=== PATIENT | female | born 1975 | race African-American/Black ===

== ENCOUNTER 2018-02-10 13:23 | Emergency (ER) | payer OTHER ==
[2018-02-10 17:16] LABS: CO2 Carbon Dioxide 25 mmol/L (22-32); Calcium 9.4 mg/dL (8.6-10.3); Chloride 97 mmol/L (101-111); Sodium 131 mmol/L (135-145)
[2018-02-10 17:19] LABS: Anion Gap 9 mmol/L (2-11)
[2018-02-10 17:22] LABS: BUN/Creatinine Ratio 22.2 (8-20); Blood Urea Nitrogen 18 mg/dL (6-24); EGFR Non-African American 78.3 (>60); Glucose 72 mg/dL (70-100)
[2018-02-10] MEDS ORDERED: Iohexol 350* (CONTRAST) 500 ML MDV IV ONE (17:30)
[2018-02-10 17:41] LABS: Hematocrit 37 % (35-47); Hemoglobin 11.7 g/dl (12.0-16.0); Mean Corpuscular Volume 72 fL (80-97); Red Blood Count 5.09 10^6/ul (4.00-5.40); White Blood Count 4.5 10^3/ul (3.5-10.8)
[2018-02-10 17:42] LABS: Mean Corpuscular HGB Conc 32 g/dl (31-36); Mean Corpuscular Hemoglobin 23 pg (27-31); Mean Platelet Volume 8.7 fL (7.4-10.4); Platelet Count 364 10^3/ul (150-450); Red Cell Distribution Width 14 % (10.5-15)
[2018-02-10 18:12] LABS: ABS Basophils 0 10^3/ul (0-0.2); ABS Eosinophils 0.2 10^3/ul (0-0.6); ABS Lymphocytes 1.3 10^3/ul (1.0-4.8); ABS Monocytes 0.4 10^3/ul (0-0.8); ABS Neutrophils 2.6 10^3/ul (1.5-7.7); ABS Nucleated RBC 0 10^3/ul; Lymphocyte % 28.6 %; Nucleated Red Blood Cells % 0.1
[2018-02-10 18:13] LABS: Microcytosis 1+
[2018-02-10] MEDS ORDERED: Potassium Chlor TAB* 20 MEQ TAB.ER PO ONE (18:56)
--- NOTE | 2018-02-10 18:57 | ED ---
Throat Pain/Nasal Congestion - HPI Summary HPI Summary: Patient with history of aneurysm in 2010 complains of new onset intermittent double vision, left side headache and left sinus pain starting February 01. Patient states that were vision only with distance vision, starts in the afternoon and stays until she falls asleep. Weeks up without double vision. History of aneurysm rupture, in 2010 was last time she had double vision. Patient wears glasses. Current prescription provided in February 2017. Patient due for new evaluation generated 2018. Patient denies trauma, fever, cough, sore throat, ear pain, neck stiffness, CP, SOB, nasal discharge, N/V/D, abdominal pain, change in urine, change in BM. Medical history is HTN, aneurysm 2010. - History of Current Complaint Chief Complaint: EDGeneral Time Seen by Provider: 02/10/18 14:41 Hx Obtained From: Patient Onset/Duration: Gradual Onset Severity: Mild Associated Signs And Symptoms: Positive: Sinus Discomfort Cough: None - Allergies/Home Medications Allergies/Adverse Reactions: Allergies Allergy/AdvReac Type Severity Reaction Status Date / Time meropenem Allergy Fever Verified 02/10/18 14:10 PMH/Surg Hx/FS Hx/Imm Hx Endocrine/Hematology History: Denies: Hx Diabetes Cardiovascular History: Reports: Hx Hypertension History: Denies: Hx Dialysis, Hx Renal Disease Sensory History: Reports: Hx Contacts or Glasses - 2 year old prescription Opthamlomology History: Reports: Hx Contacts or Glasses - 2 year old prescription EENT History: Denies: Hx Deafness Neurological History: Denies: Hx Developmental Delay - Cancer History Hx Chemotherapy: No Hx Radiation Therapy: No Infectious Disease History: No Infectious Disease History: Denies: Traveled Outside the [place] in Last 30 Days - Social History Alcohol Use: None Substance Use Type: Reports: None Smoking Status (MU): Unknown if Ever Smoked Review of Systems Constitutional: Negative Positive: Blurred Vision ENT: Negative Cardiovascular: Negative Respiratory: Negative Gastrointestinal: Negative Genitourinary: Negative Musculoskeletal: Negative Skin: Negative Positive: Headache Psychological: Normal All Other Systems Reviewed And Are Negative: Yes Physical Exam - Summary Physical Exam Summary: Neuro exam normal. No tenderness to palpation of head, face, nose. Triage Information Reviewed: Yes Vital Signs On Initial Exam: Initial Vitals Temp Pulse Resp BP Pulse Ox 98.6 F 76 14 139/82 100 02/10/18 14:02 02/10/18 14:02 02/10/18 14:02 02/10/18 14:02 02/10/18 14:02 Vital Signs Reviewed: Yes Appearance: Positive: Well-Appearing Skin: Positive: Warm Head/Face: Positive: Normal Head/Face Inspection Eyes: Positive: Normal ENT: Positive: Normal ENT inspection Neck: Positive: Supple Respiratory/Lung Sounds: Positive: Clear to Auscultation Cardiovascular: Positive: Normal Abdomen Description: Positive: Nontender Musculoskeletal: Positive: Normal Neurological: Positive: Normal Psychiatric: Positive: Normal AVPU Assessment: Alert - Nancy Coma Scale Best Eye Response: 4 - Spontaneous Best Motor Response: 6 - Obeys Commands Best Verbal Response: 5 - Oriented Coma Scale Total: 15 Diagnostics - Vital Signs Vital Signs Temp Pulse Resp BP Pulse Ox 02/10/18 18:44 99 F 80 16 124/81 100 02/10/18 14:02 98.6 F 76 14 139/82 100 - Laboratory Lab Results: Lab Results 02/10/18 02/10/18 02/10/18 Range/Units 16:28 17:20 17:20 WBC 4.5 (3.5-10.8) 10^3/ul RBC 5.09 (4.00-5.40) 10^6/ul Hgb 11.7 L (12.0-16.0) g/dl Hct 37 (35-47) % MCV 72 L (80-97) fL MCH 23 L (27-31) pg MCHC 32 (31-36) g/dl RDW 14 (10.5-15) % Plt Count 364 (150-450) 10^3/ul MPV 8.7 (7.4-10.4) fL Neut % (Auto) 58.0 % Lymph % (Auto) 28.6 % [place] % (Auto) 8.5 % Eos % (Auto) 4.0 % Baso % (Auto) 0.9 % Absolute Neuts (auto) 2.6 (1.5-7.7) 10^3/ul Absolute Lymphs (auto) 1.3 (1.0-4.8) 10^3/ul Absolute Monos (auto) 0.4 (0-0.8) 10^3/ul Absolute Eos (auto) 0.2 (0-0.6) 10^3/ul Absolute Basos (auto) 0 (0-0.2) 10^3/ul Absolute Nucleated RBC 0 10^3/ul Nucleated RBC % 0.1 Microcytosis 1+ Sodium 131 L (135-145) mmol/L Potassium TNP 3.3 L Chloride 97 L (101-111) mmol/L Carbon Dioxide 25 (22-32) mmol/L Anion Gap 9 (2-11) mmol/L BUN 18 (6-24) mg/dL Creatinine 0.81 (0.51-0.95) mg/dL Est GFR ( Amer) 94.8 (>60) Est GFR (Non-Af Amer) 78.3 (>60) BUN/Creatinine Ratio 22.2 H (8-20) Glucose 72 (70-100) mg/dL Calcium 9.4 (8.6-10.3) mg/dL AST 23 (13-39) U/L Result Diagrams: 02/10/18 17:20 02/10/18 17:20 Lab Statement: Any lab studies that have been ordered have been reviewed, and results considered in the medical decision making process. EENT Course/Dx - Course Course Of Treatment: Patient with history of aneurysm in 2010 complains of new onset intermittent double vision, left side headache and left sinus pain starting February 01. Patient states that were vision only with distance vision , starts in the afternoon and stays until she falls asleep. Weeks up without double vision. History of aneurysm rupture, in 2010 was last time she had double vision. Patient wears glasses. Current prescription provided in February 2017. Patient due for new evaluation generated 2018. Patient denies trauma, fever, cough, sore throat, ear pain, neck stiffness, CP, SOB, nasal discharge, N/V/D, abdominal pain, change in urine, change in BM. Medical history is HTN, aneurysm 2010. Physical exam:Neuro exam normal. No tenderness to palpation of head, face, nose. Vital signs within normal limits and stable. Labs unremarkable. CTA head and neck and CT brain negative. Patient advised to follow-up with ophthalmology. - Diagnoses Provider Diagnoses: Double vision, Headache Discharge - Sign-Out/Discharge Documenting (check all that apply): Patient Departure - Discharge Plan Condition: Stable Disposition: HOME Referrals: MYAH RAWLS MD [Primary Care Provider] - Additional Instructions: Follow-up with your eye doctor for further evaluation of double vision. Take ibuprofen or Tylenol for headache. Follow-up with primary care. Return to the ED for any new or worsening symptoms - Billing Disposition and Condition Condition: STABLE Disposition: Home
[2018-02-10 19:19] VITALS: BP 124/80
== END 2018-02-10 19:18 | disposition home or self-care (01) ==
LOC: ED 13:23
DX: H53.2 Diplopia (principal); R51 Headache; I10 Essential (primary) hypertension; H53.8 Other visual disturbances
CPT/HCPCS: 36415; 70450; 70496; 70498; 80048; 85025; 99283; A9270-GY; Q9967

== ENCOUNTER 2018-02-21 13:35 | Emergency (ER) | payer OTHER ==
[2018-02-21 14:12] VITALS: BP 120/83
[2018-02-21] MEDS ORDERED: Fluorescein Sodium TOPICAL* 1 MG TEST STRIP OPHTHALMIC ONE (14:57)
[2018-02-21] MEDS ORDERED: BSS OPTH.SOL* BTL OPHTHALMIC ONE (14:58)
--- NOTE | 2018-02-21 15:04 | UC ---
Eye Complaint HPI - HPI Summary HPI Summary: PATIENT HAD 2 WEEKS OF INTERMITTENT BLURRY VISION AND DOUBLE VISION. SEEMS TO BE WORSE LATER IN THE DAY AND OKAY IN THE MORNINGS. WENT TO [facility] AND WAS EVALUATED FOR DOUBLE VISION WITH SCANS OF THE HEAD AND BLOOD WORK. WORKUP WAS NEGATIVE AND PATIENT WAS ADVISED TO FOLLOW-UP WITH AN EYE DOCTOR. REPORTS SHE SAW AN BACK WINDER YESTERDAY WHO INDICATED THAT SHE MAY HAVE CORNEAL ABRASIONS AND SHOULD SEE AN MARINE ENGINE MACHINIST FOR FURTHER EVALUATION. SHE DENIES ANY NAUSEA OR HEADACHE. HAS MILD DRAINAGE FROM THE LEFT EYE. WORE HER CONTACTS FOR A FEW DAYS THIS WEEK AND SYMPTOMS GOT WORSE. - History of Current Complaint Chief Complaint: UCEye Stated Complaint: EYE COMPLAINT Time Seen by Provider: 02/21/18 14:40 Hx Obtained From: Patient Hx Last Menstrual Period: feb [id number] Onset/Duration: Gradual Onset, Lasting Weeks, Still Present Severity Initially: Moderate Severity Currently: Moderate Pain Intensity: 7 Pain Scale Used: 0-10 Numeric Aggravating Factor(s): Nothing Alleviating Factor(s): Nothing Associated Signs And Symptoms: Positive: Drainage (Clear), Vision Impairment Bilateral. Negative: Photophobia, Fever, Swelling - Allergies/Home Medications Allergies/Adverse Reactions: Allergies Allergy/AdvReac Type Severity Reaction Status Date / Time meropenem Allergy Intermediate Fever Verified 02/21/18 14:12 Home Medications: Home Medications Chlorthalidone 25 mg PO DAILY WITH MEAL 02/21/18 [History Confirmed 02/21/18] Cholecalciferol TAB* [Vitamin D TAB*] 1,000 unit PO DAILY 02/21/18 [History Confirmed 02/21/18] PMH/Surg Hx/FS Hx/Imm Hx Cardiovascular History: Hypertension - Surgical History Surgical History: None Surgery Procedure, Year, and Place: 2009- an rupture - coiled - Family History Known Family History: Positive: Non-Contributory - Social History Alcohol Use: Rare Substance Use Type: None Smoking Status (MU): Never Smoked Tobacco Review of Systems All Other Systems Reviewed And Are Negative: Yes Constitutional: Positive: Negative Eyes: Positive: Blurred Vision, Diplopia, Drainage Respiratory: Positive: Negative Cardiovascular: Positive: Negative Gastrointestinal: Positive: Negative Neurological: Positive: Negative Physical Exam Triage Information Reviewed: Yes Appearance: Well-Appearing, No Pain Distress, Well-Nourished Vital Signs: Initial Vital Signs Temp 99.3 F 02/21/18 14:04 Pulse 72 02/21/18 14:04 Resp 18 02/21/18 14:04 BP 120/83 02/21/18 14:04 Pulse Ox 100 02/21/18 14:04 Vital Signs Reviewed: Yes Eyes: Positive: Conjunctiva Clear, Other: - PERRL, EOMI. FLUORESCEIN UPTAKE BILATERAL LOWER BULBAR CONJUNCTIVAE. PINPOINT AREA OF UPTAKE RIGHT OUTER, LOWER CORNEA. Negative: Discharge ENT: Positive: Hearing grossly normal Neck: Positive: Supple Respiratory: Positive: No respiratory distress, No accessory muscle use Cardiovascular: Positive: Pulses Normal Abdomen Description: Positive: Soft Musculoskeletal: Positive: No Edema Neurological: Positive: Alert Psychological: Positive: Age Appropriate Behavior Skin: Negative: Rashes Eye Complaint Course/Dx - Differential Dx/Diagnosis Provider Diagnosis: Abrasion of right cornea, Conjunctival abrasion Discharge - Sign-Out/Discharge Documenting (check all that apply): Patient Departure All imaging exams completed and their final reports reviewed: No Studies - Discharge Plan Condition: Stable Disposition: HOME Prescriptions: Ciprofloxacin 0.3% OPTH.AMISHA* [Cipro 0.3% Opth*] 1 drop BOTH EYES Q4H #1 btl Patient Education Materials: Corneal Abrasion (ED), Keratitis (ED) Referrals: MYAH RAWLS MD [Primary Care Provider] - If Needed Tip Bazan MD [Medical Doctor] - 1 Day Additional Instructions: CONJUNCTIVAL ABRASION Conjunctival abrasions occur from blunt injuries and mild chemical or thermal abraham and present as an irregularity of the epithelial surface of the conjunctiva, best seen using fluorescein stain and a cobalt blue light. Regions of denuded epithelium will appear green. Corneal abrasions are also frequently present. Isolated conjunctival abrasions are treated with antibiotic ointment applied four times daily for one week. Referral to an leg assembler for a complete eye examination within one to three days of injury is a reasonable precaution in these patients if all symptoms have not resolved and in contact wearers. These injuries typically heal within two to three days. Patients with an isolated conjunctival injury typically recover fully without any vision loss Don't drive or operate machinery until you have the use of both your eyes. The abrasion usually is healed in one or two days. A follow-up examination to confirm healing is recommended. Call the doctor or return at once if you develop severe pain, decreasing vision, eye swelling, or purulent drainage. Contact lens wear may increase the risk of infectious keratitis by several mechanisms: Altering and causing a breakdown of the natural protective barriers of the ocular surface and tear film (eg, hypoxia, epithelial abrasions, and tear stagnation) Providing a nidus for entrapment of microorganisms within the micropores of the oxygen-permeable polymers and the formation of microbial biofilms on the lens surfaces Contact lenses, storage cases, and disinfecting solutions may become contaminated through careless handling and poor hygienic habits of the user. Symptoms and signs of infectious keratitis usually begin within 24 hours of infection. The most common presenting features include: - Red eye (conjunctival vascular injection) - Reduced visual acuity (especially if the central cornea is involved) - Pain - Eyelid swelling - Photophobia - Corneal epithelial defect Treatment consists of antibiotic eye drops and follow-up with ophthalmology. FOLLOW-UP WITH AN EYE DOCTOR TOMORROW. NO CONTACT LENS USE AT ALL UNTIL SYMPTOMS ARE 100% RESOLVED. ONCE YOU RESUME CONTACT LENS USE ALWAYS REMOVE CONTACT LENSES AT NIGHT WHILE SLEEPING , EVEN IF THEY ARE CONTINUOUS USE LENSES. THIS WILL HELP PREVENT DEVELOPING EYE INFECTIONS AND IRRITATION IN THE FUTURE. - Billing Disposition and Condition Condition: STABLE Disposition: Home
== END 2018-02-21 15:25 | disposition home or self-care (01) ==
LOC: UCEAST 13:35
DX: S05.01XA Injury of conjunctiva and corneal abrasion without foreign body, right eye, initial encounter (principal); I10 Essential (primary) hypertension; Z88.8 Allergy status to other drugs, medicaments and biological substances; X58.XXXA Exposure to other specified factors, initial encounter; Y92.9 Unspecified place or not applicable
CPT/HCPCS: 99212; A9270-GY; G0463

== ENCOUNTER 2018-03-03 12:43 | Emergency (ER) | payer OTHER ==
--- NOTE | 2018-03-03 13:02 | ED ---
Throat Pain/Nasal Congestion - HPI Summary HPI Summary: A 42 y/o female presents to the ED c/o double vision in both eyes. As per triage , "Pt referred to ED by Dr Pitts d/t L eye not moving to left , double vision. Pt states she feels tightness "wrapping" around L eye and behind L eye. Pt seen here 02/10/18 with same symptoms". Patient was referred by Dr. Pitts because of an eye gaze. Patient was referred by his office for a workup in [facility] due to a history of cerebral aneurysm. According to the patient, her double vision started on February 02, 2018. She stated that is came on gradually, but became worse. She stated that she remembers driving back from [place], [place] (as she was seeing a friend). She was driving around 1600 - 1800 when she noticed that her double vision started. As she kept driving, it progressively became worse so a friend took over and drove the rest of the way home. She stated that the following day she was fine, but again, around 1600 she exhibited the double vision. The following day it started at 1300 - 1400, and so on. It is at a point where it is present all the time, and she is not sure if it is worse or better as they changed her glasses so she can see the road. Patient noted that she cannot see the signs and lines on the sides of the road. She decided that the symptoms could be related to her aneurysm, so she went to a neurologist, who referred her to (Dr. Gandhi), who then referred her to an bindery operator ( Dr. Bazan) who then referred her back to a neurologist. She noted that she was at [facility] on February 10, 2018 where a CAT scan was done, but everything came back normal. She stated that her aneurysm ruptured on December 16, 2010 and then had a 5-year follow up in 2016 in which she was cleared. She stated that when her aneurysm ruptures, she had a massive headache, double vision, and nausea. She denies any difficulty hearing, but has no sense of small. She additionally had a headache that she characterized as tightness/pressure on the left side of her head that radiated down her nose and also was in the back of her left eye. 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 Home Medications Medication Instructions Recorded Confirmed Type Cholecalciferol TAB* [Vitamin D 1,000 unit PO DAILY 02/21/18 03/03/18 History TAB*] Chlorthalidone TAB* [Hygroton TAB*] 25 mg PO DAILY WITH MEAL 03/03/18 03/03/18 History - History of Current Complaint Chief Complaint: EDNeurologicalDeficit Time Seen by Provider: 03/03/18 12:45 Hx Obtained From: Patient Onset/Duration: Sudden Onset, Lasting Weeks, Still Present Associated Signs And Symptoms: Positive: Negative Cough: None - Allergies/Home Medications Allergies/Adverse Reactions: Allergies Allergy/AdvReac Type Severity Reaction Status Date / Time meropenem Allergy Intermediate Fever Verified 03/03/18 12:51 Home Medications: Home Medications Chlorthalidone TAB* [Hygroton TAB*] 25 mg PO DAILY WITH MEAL 03/03/18 [History Confirmed 03/03/18] PMH/Surg Hx/FS Hx/Imm Hx Endocrine/Hematology History: Denies: Hx Diabetes, Hx Thyroid Disease Cardiovascular History: Reports: Hx Hypertension Respiratory History: Denies: Hx Asthma, Hx Chronic Obstructive Pulmonary Disease (COPD) GI History: Denies: Hx Ulcer History: Denies: Hx Dialysis, Hx Renal Disease Sensory History: Reports: Hx Contacts or Glasses - 2 year old prescription Denies: Hx Deafness Opthamlomology History: Reports: Hx Contacts or Glasses - 4 year old prescription Neurological History: Denies: Hx Developmental Delay - Cancer History Hx Chemotherapy: No Hx Radiation Therapy: No - Surgical History Surgery Procedure, Year, and Place: 2009- an rupture - coiled Infectious Disease History: No Infectious Disease History: Denies: Hx Hepatitis, Hx Human Immunodeficiency Virus (HIV), Traveled Outside the [place] in Last 30 Days - Family History Known Family History: Negative: Diabetes - Social History Alcohol Use: Rare Substance Use Type: Reports: None Smoking Status (MU): Never Smoked Tobacco Review of Systems Negative: Fever Positive: Other - DOUBLE VISION, MORE SO ON LEFT Positive: Headache All Other Systems Reviewed And Are Negative: Yes Physical Exam - Summary Physical Exam Summary: Appearance: Well-appearing, Well-nourished, lying in bed comfortably Skin: Warm, dry, no obvious rash Eyes: sclera anicteric, no conjunctival pallor ENT: mucous membranes moist, pharynx appears normal Neck: Supple, nontender Respiratory: Clear to auscultation, no signs of respiratory distress Cardiovascular: Normal S1, S2. No murmurs. Normal distal pulses in tibial and radial bilaterally. Abdomen: Soft, nontender, normal active bowel sounds present Musculoskeletal: Normal, Strength/ROM Intact Neurological: A&Ox3, awake and alert, mentation is normal, speech is fluent and appropriate. Experiencing diplopia with left eye gaze. Left eye can't cross midline but clearly has paresis. Otherwise, gaze is conjugate and pupils are reactive. Psychiatric: affect is normal, does not appear anxious or depressed Triage Information Reviewed: Yes Vital Signs On Initial Exam: Initial Vitals Temp Pulse Resp BP Pulse Ox 97.3 F 76 14 125/85 99 03/03/18 12:46 03/03/18 12:46 03/03/18 12:46 03/03/18 12:46 03/03/18 12:46 Vital Signs Reviewed: Yes Diagnostics - Vital Signs Vital Signs Temp Pulse Resp BP Pulse Ox 03/03/18 12:46 97.3 F 76 14 125/85 99 - Laboratory Result Diagrams: 03/03/18 13:15 03/03/18 13:15 Lab Statement: Any lab studies that have been ordered have been reviewed, and results considered in the medical decision making process. EENT Course/Dx - Course Course Of Treatment: A 42 y/o female presents to the ED c/o double vision in both eyes. According to the patient, her double vision started on February 02, 2018. She stated that is came on gradually, but became worse. She stated that she remembers driving back from [place], [place] (as she was seeing a friend). She was driving around 1600 - 1800 when she noticed that her double vision started. As she kept driving, it progressively became worse so a friend took over and drove the rest of the way home. She stated that the following day she was fine, but again, around 1600 she exhibited the double vision. The following day it started at 1300 - 1400, and so on. It is at a point where it is present all the time. Patient has a history of a brain aneurysm. Physical examination findings were unremarkable. No laboratory scans were done. Hematology, Chemistry, and immunology screens were done. No significant laboratory abnormalities were found except low sodium, potassium, and chloride. In the ED course, the patient received no medications. Patient will be signed out to Dr. Vikash Machuca via Dr. David Valentino, pending MRA and MRI, upon shift change on 03/03/2018 at 2200. Discharge - Sign-Out/Discharge Documenting (check all that apply): Sign-Out Patient - JULIOFAR Signing out patient TO: Vikash Machuca Receiving patient FROM: David Valentino - Discharge Plan Condition: Good Disposition: HOME Patient Education Materials: Diplopia (ED) Referrals: Mychal Pitts MD [Medical Doctor] - Additional Instructions: Please accept my apologies for the delay in getting your MRI scans. This was a consequence of having difficulty getting information on your coils from [facility]. Fortunately they did not show anything worrisome vis a vis your double vision. Problems with the sixth cranial nerve can arise with a number of other conditions besides aneurysms, none of which are a cause of immediate danger to you. Dr. Pitts will want to see you in followup to complete your workup. It may be helpful in case you need another MRI scan at some point in the future to obtain the information about your coils for you to keep yourself. Usually this is provided in the form of a card which has all the relevant information. I would think that your neurosurgeon's or interventional radiologist's office would be able to supply that to you. - Attestation Statements Document Initiated by Scribe: Yes Documenting Scribe: Kar Fuchs Provider For Whom Toney is Documenting (Include Credential): David Valentino MD Scribe Attestation: I, Kar Fuchs, scribed for David Valentino MD on 03/03/18 at 2204. Status of Scribe Document: Ready
--- OUTSIDE RECORDS SUMMARY | 2018-03-03 13:03 | XMS REPORT | Continuity of Care Document ---
:1975 External Reference #:[id number] Author Name Neto Yungon, OD Address [address] [place] [address] Care Team Providers Name Role Phone Vincent Ramirez M.D. Primary Care Physician Unavailable Payers Type Date Identification Numbers Payment Provider Subscriber Policy Number: [id number] [employer] Number: [id number] [address] PayID: [id number] [place] [address] Advance Directives Description No Information Available Problems Date Description Provider Status Onset: Problem Active Family History Date Family Member(s) Problem(s) Comments General Glasses General Heart Disease General Diabetes Father Glasses Mother Glasses Mother Diabetes Mother Heart Disease Mother High BP Social History Type Date Description Comments Sex Unknown ETOH Use Rarely consumes alcohol Tobacco Use Start: Unknown Patient has never smoked Smoking Status Reviewed: 03/01/18 Patient has never smoked Allergies, Adverse Reactions, Alerts Date Description Reaction Status Severity Comments 02/23/2018 Meropenem / Vaborbactam Active Medications Medication Date Status Form Strength Qnty SIG Indications Ordering Provider Vitamin D 02/21 Active Tablets 1000Unit Unknown (Cholecalcifero /2018 l) Chlorthalidone 02/21 Active Tablets 25mg Ciprofloxacin 02/21 Active Solution 0.3% 1unit Ciprofloxacin Unknown HCL /2018 s 0.3% Opth.Fara* Immunizations Description No Information Available Vital Signs Date Vital Result Comment 03/01/2018 3:13pm Intraocular Pressure Right Eye 15 mmHg Intraocular Pressure Left Eye 15 mmHg 02/23/2018 11:06am Intraocular Pressure Right Eye 16 mmHg Intraocular Pressure Left Eye 16 mmHg Results Test Date Facility Test Result H/L Range Note TSH And T4 02/23/2018 [facility] TSH Thyroid <pending> Stimulating Horm T4 Total Thyroxine <pending> Laboratory test 02/23/2018 [facility] T3 Free <pending> finding Laboratory Studies 02/10/2018 N2N/CCD Import Absolute 0 10^3/ul 0-0.2 Basophils (auto) Absolute Eosinophils (auto) 0.2 10^3/ul 0-0.6 Absolute Lymphocytes (auto) 1.3 10^3/ul 1.0-4.8 Absolute Monocytes (auto) 0.4 10^3/ul 0-0.8 Absolute Neutrophils (auto) 2.6 10^3/ul 1.5-7.7 Aspartate Amino Transf (Ast/Sgot) 23 U/L 13-39 Basophils (%) (Auto) 0.9 % Eosinophils (%) (Auto) 4.0 % Hematocrit 37 % 35-47 Hemoglobin 11.7 g/dL Low 12.0-16.0 Lymphocytes (%) (Auto) 28.6 % Mean Corpuscular Hemoglobin 23 pg Low 27-31 Mean Corpuscular Hemoglobin Concent 32 g/dL 31-36 Mean Corpuscular Volume 72 fL Low 80-97 Mean Platelet Volume 8.7 fL 7.4-10.4 Monocytes (%) (Auto) 8.5 % Neutrophils (%) (Auto) 58.0 % Nucleated RBC Absolute Count (auto) 0 10^3/ul Nucleated Red Blood Cells % 0.1 Platelet Count 364 10^3/ul 150-450 Potassium Level 3.3 mmol/L Low 3.5-5.0 Red Blood Count 5.09 10^6/ul 4.00-5.40 Red Cell Distribution Width 14 % 10.5-15 White Blood Count 4.5 10^3/ul 3.5-10.8 Laboratory Studies 02/10/2018 N2N/CCD Import Anion Gap 9 mmol/L 2-11 BUN/Creatinine Ratio 22.2 High 8-20 Blood Urea Nitrogen 18 mg/dL 6-24 Calcium Level 9.4 mg/dL 8.6-10.3 Carbon Dioxide Level 25 mmol/L 22-32 Chloride Level 97 mmol/L Low 101-111 Creatinine 0.81 mg/dL 0.51-0.95 Estimated GFR () 94.8 Estimated GFR (Non- 78.3 Glucose Level 72 mg/dL 70-100 Sodium Level 131 mmol/L Low 135-145 Procedures Date Code Description Status 03/01/2018 46477 Visual Field Exam Extended, Unilateral Or Bilateral Completed 02/23/2018 03794 Oct, Optic Nerve Completed 02/23/2018 21127 Eye Exam New Comprehensive Completed Encounters Type Date Location Provider Dx Diagnosis Office Visit 03/01/2018 Main Office Neto Anthony, OD H40.013 Open angle with 9:15a borderline findings, low risk, bilateral 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
--- OUTSIDE RECORDS SUMMARY | 2018-03-03 13:03 | XMS REPORT | Continuity of Care Document ---
:1975 External Reference #:[id number] Author Name Neto Anthony, OD Address [address] [place] [address] Care Team Providers Name Role Phone Vincent Ramirez M.D. Care Team Information Soap Grinder Unavailable Vincent Ramirez M.D. Primary Care Physician Unavailable Payers Type Date Identification Numbers Payment Provider Subscriber Policy Number: [id number] [employer] Number: [id number] [address] PayID: [id number] [place] [address] Advance Directives Description No Information Available Problems [...] Patient has never smoked Smoking Status Reviewed: 02/23/18 Patient has never smoked Allergies, Adverse Reactions, [...] Immunizations Description No Information Available Vital Signs Description No Information Available Results Test Date Facility Test Result H/L [...] Low 135-145 Procedures Date Code Description Status 02/23/2018 59223 Oct, Optic Nerve Completed 02/23/2018 39781 Eye Exam New Comprehensive Completed Encounters Description No Information Available Plan of Treatment 02/23/2018 - Neto Anthony, ODH04.123 Dry eye syndrome of bilateral lacrimal glandsFollow up:2-3 days visual efvdnG06.2 DiplopiaFollow up:2-3 days visual elvrwH35.8 Other visual disturbancesFollow up:2-3 days visual onvwqF86.9 Toxoplasmosis, unspecifiedFollow up:2-3 days visual field
--- OUTSIDE RECORDS SUMMARY | 2018-03-03 13:03 | XMS REPORT | Continuity of Care Document ---
:1975 External Reference #:[id number] Author Name Neto Anthony, OD Address [address] [place] [address] Care Team Providers Name Role Phone Vincent Ramirez M.D. Care Team Information Core Maker Unavailable Vincent Ramirez M.D. Primary Care Physician Unavailable Payers Type Date Identification Numbers Payment Provider Subscriber Policy Number: [id number] [employer] Group Number: [id number] [address] PayID: [id number] [place] [address] Advance Directives Description No Information Available Problems [...] Available Vital Signs Date Vital Result Comment 02/23/2018 11:06am Intraocular Pressure Right Eye 16 [...] 135-145 Procedures Date Code Description Status 02/23/2018 56097 Oct, Optic Nerve Completed 02/23/2018 93214 Eye Exam New Comprehensive Completed Encounters Description No Information Available Plan of Treatment No Information Available
[2018-03-03 13:36] LABS: ABS Basophils 0.1 10^3/ul (0-0.2); ABS Eosinophils 0.1 10^3/ul (0-0.6); ABS Lymphocytes 1.4 10^3/ul (1.0-4.8); ABS Monocytes 0.3 10^3/ul (0-0.8); ABS Neutrophils 1.7 10^3/ul (1.5-7.7); ABS Nucleated RBC 0 10^3/ul; Eosinophil % 3.4 %; Hematocrit 39 % (35-47); Hemoglobin 12.7 g/dl (12.0-16.0); Lymphocyte % 38.1 %; Mean Corpuscular HGB Conc 32 g/dl (31-36); Mean Corpuscular Hemoglobin 23 pg (27-31); Mean Corpuscular Volume 72 fL (80-97); Mean Platelet Volume 8.8 fL (7.4-10.4); Nucleated Red Blood Cells % 0.2; Platelet Count 343 10^3/ul (150-450); Red Blood Count 5.45 10^6/ul (4.00-5.40); Red Cell Distribution Width 14 % (10.5-15); White Blood Count 3.7 10^3/ul (3.5-10.8)
[2018-03-03 13:56] LABS: Albumin 4.3 g/dL (3.2-5.2); Albumin/Globulin Ratio 0.8 (1-3); BUN/Creatinine Ratio 21.6 (8-20); C Reactive Protein 6.99 mg/L (<8.01); Calcium 10.2 mg/dL (8.6-10.3); EGFR Non-African American 86.9 (>60); Globulin 5.4 g/dL (2-4); Potassium 3.4 mmol/L (3.5-5.0); Total Bilirubin 0.3 mg/dL (0.2-1.0); Total Protein 9.7 g/dL (6.4-8.9)
[2018-03-03 14:29] LABS: Thyroid Peroxidase Antibodies 1.36 IU/mL (<9)
[2018-03-03] MEDS ORDERED: Gadoteridol* (CONTRAST) 279.3 MG/ML 10 ML IV ONE (21:55)
--- NOTE | 2018-03-03 23:34 | ED ---
Progress - Progress Note Progress Note: This patient was signed out from Dr. Valentino to Dr. aMchuca upon shift change at 22 :00 03/03/18 pending head MRA and brain/orbits MRI. Head MRA impression: No acute findings. ED physician has reviewed this imaging report. Brain/orbits MRI impression: 1. The appearance of the orbits are normal. The optic chiasm is normal. The optic radiations are unremarkable. The appearance of the occipital lobes are normal. 2. Focal lesion adjacent to left caudate head consistent with an area of cystic encephalomalacia which may represent a small lacunar infarct. Otherwise the appearance of the jones matter and white matter are normal. 3. No evidence of acute or subacute infarct. No intracranial hemorrhage. ED provider has reviewed this imaging report. The patient will be discharged and was instructed to follow up with enmanuel Min, on 03/04/18. She is agreeable with this plan. Course/Dx - Course Course Of Treatment: This patient was signed out from Dr. Valentino to Dr. Machuca upon shift change at 22:00 03/03/18 pending head MRA and brain/orbits MRI. Head MRA impression: No acute findings. ED physician has reviewed this imaging report. Brain/orbits MRI impression: 1. The appearance of the orbits are normal. The optic chiasm is normal. The. optic radiations are unremarkable. The appearance of the occipital lobes are. normal. 2. Focal lesion adjacent to left caudate head consistent with an area of cystic. encephalomalacia which may represent a small lacunar infarct. Otherwise the. appearance of the jones matter and white matter are normal. 3. No evidence of acute or subacute infarct. No intracranial hemorrhage. ED provider has reviewed this imaging report. The patient will be discharged and was instructed to follow up with enmanuel Min, on 03/04/18. She is agreeable with this plan. 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 Discharge - Sign-Out/Discharge Documenting (check all that apply): Patient Departure - DC - Discharge Plan Condition: Good Disposition: HOME Patient Education Materials: Diplopia (ED) Referrals: Mychal Pitts MD [Medical Doctor] - Additional Instructions: Please accept my apologies for the delay in getting your MRI scans. This was a consequence of having difficulty getting information on your coils from [facility]. Fortunately they did not show anything worrisome vis a vis your double vision. Problems with the sixth cranial nerve can arise with a number of other conditions besides aneurysms, none of which are a cause of immediate danger to you. Dr. Pitts will want to see you in followup to complete your workup. It may be helpful in case you need another MRI scan at some point in the future to obtain the information about your coils for you to keep yourself. Usually this is provided in the form of a card which has all the relevant information. I would think that your neurosurgeon's or interventional radiologist's office would be able to supply that to you. - Billing Disposition and Condition Condition: GOOD Disposition: Home - Attestation Statements Document Initiated by Toney: Yes Documenting Scribe: Harley Bowser Provider For Whom Toney is Documenting (Include Credential): Vikash Machuca MD Scribe Attestation: I, Harley Bowser, scribed for Vikash Machuca MD on 03/04/18 at 0624. Scribe Documentation Reviewed: Yes Provider Attestation: The documentation as recorded by the Harley hearn accurately reflects the service I personally performed and the decisions made by me, Vikash Machuca MD Status of Scribe Document: Viewed
[2018-03-03 23:44] VITALS: BP 117/79
== END 2018-03-03 23:50 | disposition home or self-care (01) ==
LOC: ED 12:43
DX: H53.2 Diplopia (principal)
CPT/HCPCS: 36415; 70543; 70544; 80053; 83519; 83520; 85025; 86140; 86376; 86800; 96374; 99283